=== PATIENT | female | born 1950 | race Caucasian/White ===

== ENCOUNTER → 2023-05-18 | Outpatient (CLI) | payer MEDICARE ==
[~2023-05-18] MED LIST: REGADENOSON 0.4 MG/5 ML SYRINGE IV PRN
--- NOTE | 2023-05-18 13:21 | CA ---
Lexiscan Nuclear Stress Test Report Name: Marielos Hooper Exam Date: 05/18/2023 09:52 Exam Location: [facility] Ht (in): 63 Wt (lb): 180 BSA: 1.85 Ordering Phys: Jeri Kay MD Referring Phys: Jeri Kay MD Technologist: LYLE LARIOS Age: 73 Gender: F : 1950 Procedure CPT: Indications: I42.9 Cardiomyopathy, unspecified ICD-10 Codes: Patient History: CHOL, FAMILY HX, RHEUM FEV Medications: EZETIMIBE, VIT D3, K2 Meds past 24 hrs: Pretest Chest Pain: STRESS TEST Lexiscan Protocol Exercise Duration (min:sec): 01:[address] Depressions (mm): Angina Score: Gupta Score: Resting HR (bpm): 92 Peak HR (bpm): 112 Resting BP (mmHg): 179 / 99 Peak BP (mmHg): 165 / 84 MPHR: 146 Target HR: 124 % MPHR: 77 METS: 1.0 Total Dose: Peak Dose: Atropine: Double Product: 93076 BP Response: Stress Termination: END OF DOSE Stress Symptoms: No chest pain or symptoms Stress Summary: ECG ANALYSIS Resting ECG: Stress ECG: CONCLUSIONS At baseline EKG showed normal sinus rhythm, normal axis, no significant ST or T wave abnormalities. Patient recieved IV infusion of Lexiscan 0.4mg and at peak infusion EKG showed no significant change from baseline. Conclusions: 1. Normal EKG response to Lexiscan infusion 2. Nuclear imaging to be reported separately. Dr. Fei Tyler DO (Electronically Signed) Final Date: 18 May 2023 13:20
--- NOTE | 2023-05-18 13:54 | NM ---
EXAMINATION TYPE: NM stress lexiscan cardiolite DATE OF EXAM: 05/18/2023 COMPARISON: NONE CLINICAL INDICATION: Female, 73 years old with history of I42.9 CARDIOMYOPATHY, UNSPECIFIED; TECHNIQUE: After the intravenous administration of 9.8 mCi Tc 99m Sestamibi - Cardiolite resting SPE CT images acquired 45 minutes post injection. The patient received 0.4mg Lexiscan, 26.2 mCi Tc 99m Sestamibi - Stress images obtained [address] injection FINDINGS: Review of stress and rest SPECT images demonstrates areas of reversible ischemia involving the infero septal wall as well as inferior wall and inferior lateral wall. Areas of fixed defect noted involving the anteroseptal wall and inferior wall as well. Gated analysis shows normal wall motion with an est imated left ventricular ejection fraction of 50% . IMPRESSION: Areas of reversible ischemia is noted.
== END | disposition home or self-care (01) ==
LOC: RADNMMAIN 08:13
PROVIDERS: ATTEND Internal Medicine
DX: I42.9 Cardiomyopathy, unspecified (principal); E78.00 Pure hypercholesterolemia, unspecified; I00 Rheumatic fever without heart involvement
CPT/HCPCS: 93017; 78452; A9500; J2785